=== PATIENT | female | born 1970 | race African-American/Black ===

== ENCOUNTER 2019-03-16 12:50 | Emergency (ER) | payer SELFPAY ==
[~2019-03-16] VITALS: Ht 157.5 cm; Wt 89.8 kg
[2019-03-16] MEDS ORDERED: KETOROLAC TROMETH 60MG/2ML VIAL IM ONE (17:00)
[2019-03-16] MEDS ORDERED: cefTRIAXone SOD 1,000 MG VL IM ONE (17:00)
[2019-03-16] MEDS ORDERED: LIDOCAINE 2% (LOCAL ANESTH.) PF 5ml SDV ONE (19:20)
[2019-03-16 19:34] VITALS: BP 187/121
== END 2019-03-16 19:36 | disposition left against medical advice (07) ==
LOC: ER 13:07
DX: K04.7 Periapical abscess without sinus (principal); I10 Essential (primary) hypertension; E78.5 Hyperlipidemia, unspecified; Z86.73 Personal history of transient ischemic attack (TIA), and cerebral infarction without residual deficits; Z88.6 Allergy status to analgesic agent; Z95.1 Presence of aortocoronary bypass graft; Z53.29 Procedure and treatment not carried out because of patient's decision for other reasons
CPT/HCPCS: 96372; 99283; J0696; J1885; J2001